=== PATIENT | female | born 1980 | race Caucasian/White ===

== ENCOUNTER 2018-08-13 15:00 | Emergency (ER) | payer OTHER, BC ==
[~2018-08-13] VITALS: Ht 177.8 cm; Wt 109.1 kg
[2018-08-13] MEDS ORDERED: ZYRTTAB8 PO (16:19)
[2018-08-13] MEDS ORDERED: SING10TA32 PO (16:19)
[2018-08-13 17:08] VITALS: BP 141/77
== END 2018-08-13 17:12 | disposition home or self-care (01) ==
LOC: M ED 15:00
DX: Z77.120 Contact with and (suspected) exposure to mold (toxic) (principal); J45.909 Unspecified asthma, uncomplicated; Z79.899 Other long term (current) drug therapy

== ENCOUNTER → 2018-10-16 | Outpatient (CLI) | payer BC ==
[~2018-10-16] MED LIST: SING10TA32 PO; ZYRTTAB8 PO
[2018-10-16 17:24] LABS: BASO % 0.4 % (0.0-1.0); EOS # 0.1 10^3/uL (0.0-0.50); EOS % 1.3 % (0.0-3.0); HEMATOCRIT 37.9 % (36.0-47.0); HEMOGLOBIN 12.9 g/dl (12.0-15.5); LYMPH # 3.6 10^3/uL (1.5-4.5); LYMPH % 40.6 % (24.0-44.0); MEAN CORPUSCULAR HEMOGLOBIN 30.9 pg (27.0-33.0); MEAN CORPUSCULAR VOLUME 90.9 fl (80.0-96.0); MONO # 0.7 10^3/uL (0.0-0.8); MONO % 7.4 % (0.0-5.0); NEUTROPHILS # 4.4 10^3/uL (1.8-7.7); NEUTROPHILS % 50.1 % (36.0-66.0); PLATELET COUNT, AUTOMATED 302 10^3/uL (150-450); RED BLOOD COUNT 4.17 10^6/uL (4.00-5.40); WHITE BLOOD COUNT 8.9 10^3/uL (4.0-10.0)
[2018-10-16 17:47] LABS: FREE T4 1.06 NG/DL (0.76-1.46); THYROID STIMULATING HORMONE 1.44 uIU/ML (0.358-3.740)
== END ==
LOC: M SMT 14:33
PROVIDERS: ATTEND Physician Assistant
DX: R06.00 Dyspnea, unspecified (principal)

== ENCOUNTER → 2020-06-16 | Outpatient (CLI) | payer OTHER ==
[2020-06-16 12:00] LABS: BASO # 0.1 10^3/uL (0.0-0.2); BASO % 0.7 % (0.0-1.0); EOS # 0.1 10^3/uL (0.0-0.5); EOS % 1.6 % (0.0-3.0); HEMATOCRIT 40.7 % (36.0-47.0); HEMOGLOBIN 13.4 g/dl (12.0-15.5); LYMPH # 2.2 10^3/uL (1.5-5.0); LYMPH % 29.3 % (24.0-44.0); MEAN CORPUSCULAR HEMOGLOBIN 30.5 pg (27.0-33.0); MEAN CORPUSCULAR HGB CONC 32.9 g/dl (32.0-36.5); MEAN CORPUSCULAR VOLUME 92.5 fl (80.0-96.0); MONO # 0.6 10^3/uL (0.0-0.8); MONO % 7.3 % (0.0-5.0); NEUTROPHILS # 4.6 10^3/uL (1.5-8.5); PLATELET COUNT, AUTOMATED 294 10^3/uL (150-450); WHITE BLOOD COUNT 7.6 10^3/uL (4.0-10.0)
[2020-06-16 12:53] LABS: ALBUMIN 3.6 GM/DL (3.2-5.2); ALT/SGPT 25 U/L (12-78); BILIRUBIN,TOTAL 0.5 MG/DL (0.2-1.0); BLOOD UREA NITROGEN 10 MG/DL (7-18); CALCIUM LEVEL 9.1 MG/DL (8.5-10.1); CARBON DIOXIDE LEVEL 25 MEQ/L (21-32); CHLORIDE LEVEL 106 MEQ/L (98-107); CREATININE FOR GFR 0.81 MG/DL (0.55-1.30); FREE T4 1.03 NG/DL (0.76-1.46); GLOMERULAR FILTRATION RATE > 60.0 (>60); GLUCOSE, FASTING 86 MG/DL (70-100); POTASSIUM SERUM 4.2 MEQ/L (3.5-5.1); SODIUM LEVEL 139 MEQ/L (136-145); TOTAL 25(OH) VITAMIN D 26.3 NG/ML (30.0-100.0); TOTAL PROTEIN 7.4 GM/DL (6.4-8.2)
== END ==
LOC: M WUC 08:48
PROVIDERS: ATTEND Physician Assistant
DX: E66.01 Morbid (severe) obesity due to excess calories (principal); F41.1 Generalized anxiety disorder

== ENCOUNTER → 2021-02-14 | Outpatient (CLI) | payer OTHER ==
--- NOTE | 2021-02-14 12:51 | REP ---
INDICATION: DYSURIA. COMPARISON: None. FINDINGS: Supine and upright views of the abdomen show the intestinal gas pattern to be nonspecific. Gas and stool is seen throughout the colon within the rectosigmoid region. The organ silhouettes insofar as delineated appear unremarkable. There is an oval-shaped 1.2 cm sized calcific density in the left abdomen between the transverse processes of L2 and L3. A T-shaped radiodensity is seen within the pelvis consistent with an IUD. The accompanying single frontal view of the chest shows no free subdiaphragmatic air, cardiomegaly, infiltrates or effusions. IMPRESSION: Nonspecific intestinal gas pattern. Left-sided abdominal calcification, as described above, possibly representing and nephrolith or ureterolith. Consider follow-up stone protocol CT if clinically relevant. <Electronically signed by Dmitry Dick > 02/14/21 [id number]
== END ==
LOC: M WUC 11:23
PROVIDERS: ATTEND Physician Assistant
DX: R30.0 Dysuria (principal); R10.0 Acute abdomen

== ENCOUNTER → 2021-06-28 | Outpatient (CLI) | payer OTHER | LOC: M LABSMTC 09:57 | PROVIDERS: ATTEND Pediatrics | DX: Z11.52 Encounter for screening for COVID-19 (principal) ==

== ENCOUNTER → 2021-11-16 | Outpatient (CLI) | payer OTHER | LOC: M RAD 12:32 | PROVIDERS: ATTEND Physician Assistant | DX: J32.8 Other chronic sinusitis (principal) ==

== ENCOUNTER → 2021-12-13 | Outpatient (CLI) | payer OTHER | LOC: M WHC 07:45 | PROVIDERS: ATTEND Physician Assistant | DX: Z12.31 Encounter for screening mammogram for malignant neoplasm of breast (principal) ==

== ENCOUNTER → 2022-01-18 | Outpatient (REF) | payer OTHER | LOC: M LAB REF 18:54 | PROVIDERS: ATTEND Internal Medicine | DX: R30.0 Dysuria (principal) ==

== ENCOUNTER → 2022-01-28 | Outpatient (CLI) | payer OTHER | LOC: M WUC 08:27 | PROVIDERS: ATTEND Allergy & Immunology Allergy | DX: J31.0 Chronic rhinitis (principal) ==

== ENCOUNTER → 2022-01-28 | Outpatient (CLI) | payer OTHER ==
[2022-01-28 11:05] LABS: BASO # 0.1 10^3/uL (0.0-0.2); BASO % 0.7 % (0.0-1.0); EOS # 0.2 10^3/uL (0.0-0.5); EOS % 1.6 % (0.0-3.0); HEMATOCRIT 39.4 % (36.0-47.0); HEMOGLOBIN 12.6 g/dl (12.0-15.5); LYMPH # 3.2 10^3/uL (1.5-5.0); LYMPH % 30.3 % (24.0-44.0); MEAN CORPUSCULAR HEMOGLOBIN 29.8 pg (27.0-33.0); MEAN CORPUSCULAR VOLUME 93.1 fl (80.0-96.0); MONO # 0.5 10^3/uL (0.0-0.8); MONO % 4.8 % (2.0-8.0); NEUTROPHILS # 6.6 10^3/uL (1.5-8.5); NEUTROPHILS % 62.1 % (36.0-66.0); PLATELET COUNT, AUTOMATED 333 10^3/uL (150-450); RED BLOOD COUNT 4.23 10^6/uL (4.00-5.40); WHITE BLOOD COUNT 10.6 10^3/uL (4.0-10.0)
[2022-01-28 11:42] LABS: ALBUMIN 3.3 GM/DL (3.2-5.2); BILIRUBIN,TOTAL 0.2 MG/DL (0.2-1.0); CALCIUM LEVEL 8.5 MG/DL (8.5-10.1); CHOLESTEROL RISK RATIO 4.175 (<5); CREATININE FOR GFR 1.13 MG/DL (0.55-1.30); FREE T4 1.02 NG/DL (0.76-1.46); GLOMERULAR FILTRATION RATE 56.8 (>58); POTASSIUM SERUM 4.2 MEQ/L (3.5-5.1); THYROID STIMULATING HORMONE 1.97 uIU/ML (0.358-3.740); TOTAL PROTEIN 7.3 GM/DL (6.4-8.2)
[2022-01-28 11:44] LABS: TOTAL 25(OH) VITAMIN D 27.6 NG/ML (30.0-100.0)
[2022-01-28 11:54] LABS: HEMOGLOBIN A1c 5.6 %
== END ==
LOC: M WUC 08:20
PROVIDERS: ATTEND Physician Assistant
DX: Z13.220 Encounter for screening for lipoid disorders (principal); Z13.29 Encounter for screening for other suspected endocrine disorder

== ENCOUNTER → 2022-08-22 | Outpatient (REF) | payer OTHER | LOC: M LAB REF 16:25 | PROVIDERS: ATTEND Physician Assistant | DX: R50.9 Fever, unspecified (principal) ==

== ENCOUNTER 2022-08-27 15:34 | Emergency (ER) | payer OTHER ==
[~2022-08-27] VITALS: Ht 177.8 cm; Wt 124.7 kg
[2022-08-27] MEDS ORDERED: MOLN200C (18:40)
[2022-08-27 21:01] VITALS: BP 133/89
== END 2022-08-27 21:04 | disposition home or self-care (01) ==
LOC: M ED 18:51
DX: U07.1 COVID-19 (principal); E66.9 Obesity, unspecified; Z79.899 Other long term (current) drug therapy

== ENCOUNTER → 2022-09-05 | Outpatient (REF) | payer OTHER ==
[~2022-09-05] MED LIST changes: +MOLN200C
== END ==
LOC: M LAB REF 17:04
PROVIDERS: ATTEND Physician Assistant
DX: N39.0 Urinary tract infection, site not specified (principal)

== ENCOUNTER → 2023-06-27 | Outpatient (CLI) | payer OTHER ==
[~2023-06-27] MED LIST changes: +MONT-5 PO; -SING10TA32 PO
== END ==
LOC: M WHC 07:41
PROVIDERS: ATTEND Physician Assistant
DX: Z12.31 Encounter for screening mammogram for malignant neoplasm of breast (principal)

== ENCOUNTER → 2024-06-18 | Outpatient (CLI) | payer OTHER ==
[2024-06-18 18:09] LABS: BASO # 0.1 10^3/uL (0.0-0.2); BASO % 0.5 % (0.0-1.0); EOS # 0.2 10^3/uL (0.0-0.5); EOS % 1.2 % (0.0-3.0); HEMOGLOBIN 13.1 g/dl (12.0-15.5); LYMPH # 4.8 10^3/uL (1.5-5.0); LYMPH % 37.9 % (24.0-44.0); MEAN CORPUSCULAR HEMOGLOBIN 30.7 pg (27.0-33.0); MEAN CORPUSCULAR HGB CONC 32.8 g/dl (32.0-36.5); MEAN CORPUSCULAR VOLUME 93.7 fl (80.0-96.0); MONO # 0.7 10^3/uL (0.0-0.8); MONO % 5.3 % (2.0-8.0); NEUTROPHILS % 54.8 % (36.0-66.0); PLATELET COUNT, AUTOMATED 335 10^3/uL (150-450); RED BLOOD COUNT 4.27 10^6/uL (4.00-5.40); WHITE BLOOD COUNT 12.7 10^3/uL (4.0-10.0)
[2024-06-18 18:21] LABS: ALBUMIN 3.7 G/DL (3.2-5.2); ALKALINE PHOSPHATASE 58 U/L (35-104); ALT/SGPT 22 U/L (7.0-40); AST/SGOT < 8 U/L (<34); BILIRUBIN,TOTAL 0.5 MG/DL (0.3-1.2); BLOOD UREA NITROGEN 15 MG/DL (9-23); CALCIUM LEVEL 9.8 MG/DL (8.5-10.1); CARBON DIOXIDE LEVEL 28 MMOL/L (20-31); CHLORIDE LEVEL 105 MMOL/L (98-107); CHOLESTEROL LEVEL 188 MG/DL (<200); CHOLESTEROL RISK RATIO 4.43 (<5); CREATININE FOR GFR 1.03 MG/DL (0.55-1.30); GLOMERULAR FILTRATION RATE > 60.0 (>58); GLUCOSE, FASTING 85 MG/DL (60-100); HDL CHOLESTEROL 42.4 MG/DL (>40); LDL CHOLESTEROL 120.8 MG/DL (<100); NON-HDL-C 145.6 MG/DL; SODIUM LEVEL 139 MMOL/L (136-145); TOTAL PROTEIN 7.5 G/DL (5.7-8.2); TRIGLYCERIDES LEVEL 124 MG/DL (<150)
[2024-06-18 18:23] LABS: FREE T4 1.33 NG/DL (0.89-1.76); THYROID STIMULATING HORMONE 1.278 uIU/ML (0.55-4.78)
[2024-06-18 18:24] LABS: TOTAL 25(OH) VITAMIN D 33.6 NG/ML (20.0-100.0)
[2024-06-18 18:40] LABS: HEMOGLOBIN A1c 5.2 % (4.0-6.0)
== END ==
LOC: M PLALAB 16:18
PROVIDERS: ATTEND Physician Assistant
DX: Z13.220 Encounter for screening for lipoid disorders (principal)

== ENCOUNTER → 2024-06-18 | Outpatient (CLI) | payer OTHER ==
[2024-06-18 18:08] LABS: HEMOGLOBIN 13.1 g/dl (12.0-15.5); MEAN CORPUSCULAR HEMOGLOBIN 30.3 pg (27.0-33.0); MEAN CORPUSCULAR HGB CONC 32.8 g/dl (32.0-36.5); MEAN CORPUSCULAR VOLUME 92.6 fl (80.0-96.0); PLATELET COUNT, AUTOMATED 331 10^3/uL (150-450); RED BLOOD COUNT 4.32 10^6/uL (4.00-5.40); WHITE BLOOD COUNT 12.3 10^3/uL (4.0-10.0)
[2024-06-18 18:26] LABS: ALBUMIN 3.6 G/DL (3.2-5.2); ALKALINE PHOSPHATASE 54 U/L (35-104); ALT/SGPT 21 U/L (7.0-40); AST/SGOT 9 U/L (<34); BILIRUBIN,TOTAL 0.5 MG/DL (0.3-1.2); BLOOD UREA NITROGEN 15 MG/DL (9-23); CALCIUM LEVEL 9.6 MG/DL (8.5-10.1); CARBON DIOXIDE LEVEL 27 MMOL/L (20-31); CHLORIDE LEVEL 106 MMOL/L (98-107); CREATININE FOR GFR 1.04 MG/DL (0.55-1.30); GLOMERULAR FILTRATION RATE > 60.0 (>58); GLUCOSE, FASTING 83 MG/DL (60-100); POTASSIUM SERUM 4.1 MMOL/L (3.5-5.1); SODIUM LEVEL 141 MMOL/L (136-145); TOTAL PROTEIN 7.3 G/DL (5.7-8.2)
[2024-06-18 18:28] LABS: VITAMIN B12 LEVEL 572 PG/ML (211-911)
== END ==
LOC: M PLALAB 16:19
PROVIDERS: ATTEND Nurse Practitioner Family
DX: L73.2 Hidradenitis suppurativa (principal)

== ENCOUNTER → 2024-06-25 | Outpatient (CLI) | payer OTHER ==
[2024-06-25 11:26] LABS: BASO # 0.1 10^3/uL (0.0-0.2); BASO % 0.6 % (0.0-1.0); EOS # 0.2 10^3/uL (0.0-0.5); EOS % 1.6 % (0.0-3.0); HEMATOCRIT 41.5 % (36.0-47.0); HEMOGLOBIN 13.6 g/dl (12.0-15.5); LYMPH # 3.4 10^3/uL (1.5-5.0); LYMPH % 31.1 % (24.0-44.0); MEAN CORPUSCULAR HEMOGLOBIN 30.4 pg (27.0-33.0); MEAN CORPUSCULAR HGB CONC 32.8 g/dl (32.0-36.5); MEAN CORPUSCULAR VOLUME 92.6 fl (80.0-96.0); MONO # 0.6 10^3/uL (0.0-0.8); MONO % 5.3 % (2.0-8.0); NEUTROPHILS # 6.7 10^3/uL (1.5-8.5); PLATELET COUNT, AUTOMATED 334 10^3/uL (150-450); RED BLOOD COUNT 4.48 10^6/uL (4.00-5.40); WHITE BLOOD COUNT 10.9 10^3/uL (4.0-10.0)
[2024-06-25 11:31] LABS: LDH LACTATE DEHYDROGENASE 142 U/L (120-246)
[2024-06-25 11:32] LABS: ERYTHROCYTE SEDIMENTATION RATE 34 mm/hr (0-20)
[2024-06-25 11:47] LABS: HEPATITIS B SURFACE ANTIGEN NEGATIVE (NEGATIVE)
[2024-06-25 12:00] LABS: HIV 1&2 SCREEN NEGATIVE (NEGATIVE)
[2024-06-25 12:06] LABS: HEPATITIS C VIRUS ABY INDEX < 0.02 INDEX (<0.8)
[2024-06-25 12:07] LABS: HEPATITIS B CORE ANTIBODY IGM NEGATIVE (NEGATIVE)
== END ==
LOC: M PLALAB 07:57
PROVIDERS: ATTEND Physician Assistant
DX: D72.829 Elevated white blood cell count, unspecified (principal)

== ENCOUNTER → 2024-07-14 | Outpatient (CLI) | payer OTHER | LOC: M WHC 07:31 | PROVIDERS: ATTEND Physician Assistant | DX: Z12.31 Encounter for screening mammogram for malignant neoplasm of breast (principal) ==

== ENCOUNTER → 2024-08-19 | Outpatient (CLI) | payer OTHER ==
[~2024-08-19] MED LIST changes: +BUSP10TA PO; +ERGO500029 PO; +OMEP-173 PO; +OMEP40CA5 PO; +RIFA300C62 PO; +SPIR50TA4 PO
[2024-08-19 10:34] LABS: BASO # 0.1 10^3/uL (0.0-0.2); BASO % 0.6 % (0.0-1.0); EOS # 0.1 10^3/uL (0.0-0.5); EOS % 1.5 % (0.0-3.0); HEMATOCRIT 40.5 % (36.0-47.0); HEMOGLOBIN 13.4 g/dl (12.0-15.5); LYMPH # 2.9 10^3/uL (1.5-5.0); LYMPH % 33.6 % (24.0-44.0); MEAN CORPUSCULAR HEMOGLOBIN 30.6 pg (27.0-33.0); MEAN CORPUSCULAR HGB CONC 33.1 g/dl (32.0-36.5); MEAN CORPUSCULAR VOLUME 92.5 fl (80.0-96.0); MONO # 0.5 10^3/uL (0.0-0.8); MONO % 5.3 % (2.0-8.0); NEUTROPHILS % 58.8 % (36.0-66.0); PLATELET COUNT, AUTOMATED 263 10^3/uL (150-450); RED BLOOD COUNT 4.38 10^6/uL (4.00-5.40); WHITE BLOOD COUNT 8.6 10^3/uL (4.0-10.0)
[2024-08-19 10:57] LABS: ALBUMIN 3.6 G/DL (3.2-5.2); ALKALINE PHOSPHATASE 47 U/L (35-104); ALT/SGPT 26 U/L (7.0-40); AST/SGOT 11 U/L (<34); BILIRUBIN,TOTAL 0.3 MG/DL (0.3-1.2); BLOOD UREA NITROGEN 16 MG/DL (9-23); CALCIUM LEVEL 9.4 MG/DL (8.5-10.1); CARBON DIOXIDE LEVEL 24 MMOL/L (20-31); CHLORIDE LEVEL 107 MMOL/L (98-107); CREATININE FOR GFR 0.93 MG/DL (0.55-1.30); GLOMERULAR FILTRATION RATE > 60.0 (>58); GLUCOSE, FASTING 100 MG/DL (60-100); POTASSIUM SERUM 4.5 MMOL/L (3.5-5.1); SODIUM LEVEL 143 MMOL/L (136-145); TOTAL PROTEIN 7.4 G/DL (5.7-8.2)
== END ==
LOC: M PLALAB 07:30
PROVIDERS: ATTEND Physician Assistant
DX: Z01.818 Encounter for other preprocedural examination (principal)

== ENCOUNTER 2024-08-31 08:36 | Observation (INO) | payer OTHER ==
[2024-08-31] VITALS (8 sets, daily range): BP systolic 94–123; BP diastolic 56–75; TEMP 97.5–98.8; O2SAT 92–94
[~2024-08-31] VITALS: Ht 177.8 cm; Wt 122.1 kg
[~2024-08-31 08:36] MED LIST changes: +CLIN-250 PO
[2024-08-31] MEDS ORDERED: VITA500045 PO (10:02)
[2024-08-31] MEDS ORDERED: BUSP10TA PO (10:02)
[2024-08-31] MEDS ORDERED: HOME MED LIST COMPLETE! XX SCH (10:05)
[2024-08-31] MEDS ORDERED: propofoL 200 MG/20 ML VIAL As Ordered ONE (10:10)
[2024-08-31] MEDS ORDERED: ONDANSETRON 4MG 2ML VIAL As Ordered ONE (10:10)
[2024-08-31] MEDS ORDERED: fentaNYL 100 MCG/2 ML INJECTION As Ordered ONE (10:11)
[2024-08-31] MEDS ORDERED: MIDAZOLAM INJ 2MG/2ML VIAL As Ordered ONE (10:11)
[2024-08-31] MEDS ORDERED: dexmedeTOMIDine (4MCG/ML)200MCG/50ML BTL (PRECEDEX) As Ordered ONE (10:11)
[2024-08-31] MEDS ORDERED: LIDOCAINE 2% 100MG/5ML SDV (FOR ANES.) As Ordered ONE (10:19)
[2024-08-31] MEDS: SCOPOLAMINE 1MG TRANSDERMAL PATCH TOP ONE (10:33)
[2024-08-31] MEDS: NS (Normal Saline) 0.9% 1,000 ML IV SCH ×2 (10:33→13:35)
[2024-08-31] MEDS ORDERED: SEVOFLURANE INHAL SOLN 250 ML BTL As Ordered ONE (10:51)
[2024-08-31] MEDS: ceFAZolin SOD 1 GM in DEXTROSE 5% (D5W) ADV/MINI-BAG 50 ML IV ONE (12:00)
[2024-08-31] MEDS: ceFAZolin SOD 2 GM in IV 1 EA IV ONE (12:00)
[2024-08-31] MEDS ORDERED: ROCURONIUM BROMIDE 50MG/5ML VIAL As Ordered ONE (12:25)
[2024-08-31] MEDS: GENTAMICIN SULF 80MG/2ML VIAL As Ordered ONE (12:26)
[2024-08-31] MEDS ORDERED: ACETAMINOPHEN 1000MG/100ML IV BAG As Ordered ONE (12:38)
[2024-08-31] MEDS ORDERED: HYDROmorphone HCL 2MG/ML 1ML VIAL As Ordered ONE (12:43)
[2024-08-31] MEDS: BUPivacaine LIPOSOME/PF 266MG 20ML VIAL (13.3MG/ML)(EXPAREL) As Ordered ONE (12:57)
[2024-08-31] MEDS ORDERED: ePHEDrine SULFATE 25 MG/5 ML(5MG/ML) SYRINGE As Ordered ONE (13:06)
[2024-08-31] MEDS ORDERED: fentaNYL 100 MCG/2 ML INJECTION IV PRN (13:35)
[2024-08-31] MEDS ORDERED: HYDROMORPHONE HCL 0.5 MG/ 0.5 ML SYRINGE IV PRN (13:35)
[2024-08-31] MEDS ORDERED: ONDANSETRON 4MG 2ML VIAL IV PRN ×2 (13:35→13:45)
[2024-08-31] MEDS: oxyCODONE 5MG TAB PO PRN (14:23)
[2024-08-31] MEDS: LR 1,000 ML IV SCH (14:55)
[2024-08-31] MEDS: traMADol 50 MG TAB PO PRN (16:10)
[2024-08-31] MEDS: ceFAZolin SOD 2 GM in IV 1 EA IV SCH (20:06)
[2024-08-31] MEDS: PERCOCET 5MG/325MG TAB PO PRN (22:07)
[2024-09-01 04:19] VITALS: BP 101/65; TEMP 98.1; O2SAT 95
[2024-09-01 08:00] VITALS: BP 123/74; TEMP 98.4; O2SAT 97
[2024-09-01] MEDS: CETIRIZINE (ZyrTEC) 10 MG TAB PO SCH (09:00)
[2024-09-01 12:00] VITALS: BP 122/73; TEMP 98.4; O2SAT 92
[2024-09-01 20:00] VITALS: BP 125/74; TEMP 98.4; O2SAT 92
[2024-09-02 04:00] VITALS: BP 128/76; TEMP 97; O2SAT 95
[2024-09-02 12:29] VITALS: BP 130/77; TEMP 98.8; O2SAT 96
[2024-09-02 20:35] VITALS: BP 127/77; TEMP 98.4; O2SAT 95
[2024-09-03 04:43] VITALS: BP 126/77; TEMP 98.4; O2SAT 94
[2024-09-03 07:09] LABS: HEMATOCRIT 37.4 % (36.0-47.0); HEMOGLOBIN 12.4 g/dl (12.0-15.5); MEAN CORPUSCULAR HEMOGLOBIN 30.6 pg (27.0-33.0); MEAN CORPUSCULAR HGB CONC 33.2 g/dl (32.0-36.5); MEAN CORPUSCULAR VOLUME 92.3 fl (80.0-96.0); PLATELET COUNT, AUTOMATED 262 10^3/uL (150-450); RED BLOOD COUNT 4.05 10^6/uL (4.00-5.40); WHITE BLOOD COUNT 9.3 10^3/uL (4.0-10.0)
[2024-09-03] MEDS: ACETAMINOPHEN 325 MG TAB PO PRN (08:16)
[2024-09-03] MEDS ORDERED: TRAM50TA2 PO (09:50)
== END 2024-09-03 11:20 | disposition home or self-care (01) ==
LOC: M SDC 08:36 → M RR INP 08:37 → M MS5PR 14:40
PROVIDERS: ADMIT Plastic Surgery Surgery of the Hand; ATTEND Plastic Surgery Surgery of the Hand
DX: L73.2 Hidradenitis suppurativa (principal); Z79.899 Other long term (current) drug therapy; Z79.2 Long term (current) use of antibiotics
CPT/HCPCS: 11450; 15271; 15272; 36415; 81025; 85027; 88304; 96374; 96376; A2006; J0131; J0665; J0666; J0690; J1100; J1171; J1580; J2250; J2405; J3010

== ENCOUNTER 2024-09-28 06:10 | Inpatient (IN) | payer OTHER ==
[~2024-09-28] VITALS: Ht 177.8 cm; Wt 127.0 kg
[~2024-09-28 06:10] MED LIST changes: +CETI10CA13 PO; +TRAM50TA2 PO; +VITA500045 PO; +ceFAZolin SOD 2 GM in IV 1 EA IV ONE
[2024-09-28 06:34] LABS: HEMATOCRIT 40.2 % (36.0-47.0); HEMOGLOBIN 13.5 g/dl (12.0-15.5); MEAN CORPUSCULAR HGB CONC 33.6 g/dl (32.0-36.5); MEAN CORPUSCULAR VOLUME 92.2 fl (80.0-96.0); PLATELET COUNT, AUTOMATED 271 10^3/uL (150-450); RED BLOOD COUNT 4.36 10^6/uL (4.00-5.40); WHITE BLOOD COUNT 9.6 10^3/uL (4.0-10.0)
[2024-09-28] MEDS ORDERED: propofoL 200 MG/20 ML VIAL As Ordered ONE (06:50)
[2024-09-28] MEDS ORDERED: LIDOCAINE 2% 100MG/5ML SDV (FOR ANES.) As Ordered ONE (06:50)
[2024-09-28] MEDS ORDERED: ONDANSETRON 4MG 2ML VIAL As Ordered ONE (06:50)
[2024-09-28] MEDS ORDERED: MIDAZOLAM INJ 2MG/2ML VIAL As Ordered ONE (06:53)
[2024-09-28] MEDS ORDERED: fentaNYL 100 MCG/2 ML INJECTION As Ordered ONE (06:53)
[2024-09-28] MEDS ORDERED: NS (Normal Saline) 0.9% 1,000 ML IV SCH (07:00)
[2024-09-28 07:04] LABS: BLOOD UREA NITROGEN 17 MG/DL (9-23); CALCIUM LEVEL 9.1 MG/DL (8.5-10.1); CARBON DIOXIDE LEVEL 28 MMOL/L (20-31); CHLORIDE LEVEL 108 MMOL/L (98-107); CREATININE FOR GFR 0.92 MG/DL (0.55-1.30); GLOMERULAR FILTRATION RATE > 60.0 (>58); GLUCOSE, FASTING 109 MG/DL (60-100); POTASSIUM SERUM 4.2 MMOL/L (3.5-5.1); SODIUM LEVEL 143 MMOL/L (136-145)
[2024-09-28] MEDS ORDERED: dexmedeTOMIDine (4MCG/ML)200MCG/50ML BTL (PRECEDEX) As Ordered ONE (07:23)
[2024-09-28] MEDS: SCOPOLAMINE 1MG TRANSDERMAL PATCH TOP ONE (07:25)
[2024-09-28] MEDS ORDERED: HOME MED LIST COMPLETE! XX SCH (07:35)
[2024-09-28] MEDS: ceFAZolin SOD 3 GM in DEXTROSE 5% (D5W) MINI-BAG PLU 1... IV ONE (07:50)
[2024-09-28] MEDS ORDERED: ACETAMINOPHEN 1000MG/100ML IV BAG As Ordered ONE (07:59)
[2024-09-28] MEDS: GENTAMICIN SULF 80MG/2ML VIAL As Ordered ONE (08:00)
[2024-09-28] MEDS: EPINEPHrine INJ 1 MG/ML 1ML AMP As Ordered ONE (08:15)
[2024-09-28] MEDS: LIDOCAINE W/EPINEPHRINE 1% 20ML VIAL As Ordered ONE (08:58)
[2024-09-28] MEDS ORDERED: ONDANSETRON 4MG 2ML VIAL IV PRN (09:00)
[2024-09-28] MEDS ORDERED: oxyCODONE 5MG TAB PO PRN (09:00)
[2024-09-28] MEDS ORDERED: fentaNYL 100 MCG/2 ML INJECTION IV PRN (09:00)
[2024-09-28] MEDS: NS (Normal Saline) 0.9% 1,000 ML IV SCH (09:00)
[2024-09-28] MEDS ORDERED: HYDROMORPHONE HCL 0.5 MG/ 0.5 ML SYRINGE IV PRN (09:00)
[2024-09-28] MEDS ORDERED: busPIRone 10 MG TAB PO PRN (10:50)
[2024-09-28] MEDS ORDERED: CETIRIZINE (ZyrTEC) 10 MG TAB PO PRN (11:35)
[2024-09-28 13:45] VITALS: BP 130/87; TEMP 98.2; O2SAT 96
[2024-09-28] MEDS: DOXYCYCLINE HYCLATE 100MG TABLET PO SCH (14:09)
[2024-09-28 17:45] VITALS: BP 96/60; TEMP 97.7; O2SAT 94
[2024-09-28 19:41] VITALS: BP 110/64; TEMP 97.7; O2SAT 94
[2024-09-28] MEDS: SPIRONOLACTONE 50 MG TAB PO SCH (20:29)
[2024-09-28] MEDS ORDERED: CLINDAMYCIN 150MG CAPSULE PO SCH (21:00)
[2024-09-28] MEDS ORDERED: rifAMPin 150MG CAPSULE PO SCH (21:00)
[2024-09-28 23:46] VITALS: BP 98/68; TEMP 98.1; O2SAT 94
[2024-09-29 04:00] VITALS: BP 103/69; TEMP 97.9; O2SAT 96
[2024-09-29] MEDS: ACETAMINOPHEN 325 MG TAB PO PRN (04:13)
[2024-09-29 06:05] LABS: HEMATOCRIT 36.9 % (36.0-47.0); HEMOGLOBIN 12.3 g/dl (12.0-15.5); MEAN CORPUSCULAR HEMOGLOBIN 30.3 pg (27.0-33.0); MEAN CORPUSCULAR HGB CONC 33.3 g/dl (32.0-36.5); MEAN CORPUSCULAR VOLUME 90.9 fl (80.0-96.0); PLATELET COUNT, AUTOMATED 240 10^3/uL (150-450); RED BLOOD COUNT 4.06 10^6/uL (4.00-5.40); WHITE BLOOD COUNT 9.4 10^3/uL (4.0-10.0)
[2024-09-29 06:41] LABS: BLOOD UREA NITROGEN 16 MG/DL (9-23); CALCIUM LEVEL 8.8 MG/DL (8.5-10.1); CARBON DIOXIDE LEVEL 25 MMOL/L (20-31); CHLORIDE LEVEL 108 MMOL/L (98-107); CREATININE FOR GFR 0.82 MG/DL (0.55-1.30); GLOMERULAR FILTRATION RATE > 60.0 (>58); GLUCOSE, FASTING 96 MG/DL (60-100); MAGNESIUM LEVEL 1.8 MG/DL (1.8-2.4); POTASSIUM SERUM 4.2 MMOL/L (3.5-5.1); SODIUM LEVEL 141 MMOL/L (136-145)
[2024-09-29 07:30] VITALS: BP 107/71; TEMP 98.1; O2SAT 95
[2024-09-29 08:00] VITALS: BP 107/71; TEMP 98.1; O2SAT 95
[2024-09-29] MEDS: CETIRIZINE (ZyrTEC) 10 MG TAB PO SCH (08:33)
[2024-09-29] MEDS: OMEPRAZOLE 20MG CAP PO SCH (08:33)
[2024-09-29 11:42] VITALS: BP 108/71; TEMP 97.2; O2SAT 95
[2024-09-29] MEDS: ENOXAPARIN 40MG/0.4ML SYRINGE (J1650 PER 10MG) SC SCH (12:39)
[2024-09-29 16:00] VITALS: BP 106/65; TEMP 98.1; O2SAT 93
[2024-09-29 20:33] VITALS: BP 115/64; TEMP 97.2; O2SAT 94
[2024-09-30 00:07] VITALS: BP 112/68; TEMP 97.5; O2SAT 95
[2024-09-30 04:53] VITALS: BP 111/68; TEMP 97.7; O2SAT 97
[2024-09-30 06:39] LABS: HEMATOCRIT 36.6 % (36.0-47.0); HEMOGLOBIN 12.4 g/dl (12.0-15.5); MEAN CORPUSCULAR HEMOGLOBIN 31.2 pg (27.0-33.0); MEAN CORPUSCULAR HGB CONC 33.9 g/dl (32.0-36.5); PLATELET COUNT, AUTOMATED 233 10^3/uL (150-450); RED BLOOD COUNT 3.98 10^6/uL (4.00-5.40); WHITE BLOOD COUNT 8.3 10^3/uL (4.0-10.0)
[2024-09-30 07:37] LABS: BLOOD UREA NITROGEN 20 MG/DL (9-23); CALCIUM LEVEL 8.5 MG/DL (8.5-10.1); CARBON DIOXIDE LEVEL 24 MMOL/L (20-31); CHLORIDE LEVEL 109 MMOL/L (98-107); CREATININE FOR GFR 0.74 MG/DL (0.55-1.30); GLOMERULAR FILTRATION RATE > 60.0 (>58); GLUCOSE, FASTING 90 MG/DL (60-100); MAGNESIUM LEVEL 1.8 MG/DL (1.8-2.4); POTASSIUM SERUM 4.3 MMOL/L (3.5-5.1); SODIUM LEVEL 142 MMOL/L (136-145)
[2024-09-30 08:33] VITALS: BP 122/76; TEMP 98.1; O2SAT 95
[2024-09-30] MEDS: traMADol 50 MG TAB PO PRN (09:39)
[2024-09-30 12:23] VITALS: BP 120/75; TEMP 98.1; O2SAT 95
[2024-09-30 16:30] VITALS: BP 121/75; TEMP 98.1; O2SAT 96
[2024-09-30 21:37] VITALS: BP 120/79; TEMP 97.3; O2SAT 96
[2024-10-01 00:46] VITALS: BP 120/76; TEMP 97; O2SAT 97
[2024-10-01 05:50] VITALS: BP 119/76; TEMP 97.7; O2SAT 96
[2024-10-01 07:08] LABS: HEMATOCRIT 38.5 % (36.0-47.0); HEMOGLOBIN 12.8 g/dl (12.0-15.5); MEAN CORPUSCULAR HEMOGLOBIN 30.6 pg (27.0-33.0); MEAN CORPUSCULAR HGB CONC 33.2 g/dl (32.0-36.5); MEAN CORPUSCULAR VOLUME 92.1 fl (80.0-96.0); PLATELET COUNT, AUTOMATED 238 10^3/uL (150-450); RED BLOOD COUNT 4.18 10^6/uL (4.00-5.40); WHITE BLOOD COUNT 9.6 10^3/uL (4.0-10.0)
[2024-10-01 07:40] LABS: BLOOD UREA NITROGEN 17 MG/DL (9-23); CALCIUM LEVEL 9.1 MG/DL (8.5-10.1); CARBON DIOXIDE LEVEL 25 MMOL/L (20-31); CHLORIDE LEVEL 111 MMOL/L (98-107); CREATININE FOR GFR 0.76 MG/DL (0.55-1.30); GLOMERULAR FILTRATION RATE > 60.0 (>58); GLUCOSE, FASTING 89 MG/DL (60-100); MAGNESIUM LEVEL 1.8 MG/DL (1.8-2.4); POTASSIUM SERUM 4.2 MMOL/L (3.5-5.1); SODIUM LEVEL 143 MMOL/L (136-145)
[2024-10-01 07:53] VITALS: BP 117/78; TEMP 98.1; O2SAT 95
[2024-10-01 09:36] VITALS: BP 117/78; TEMP 98.1; O2SAT 95
[2024-10-01 12:00] VITALS: BP 116/78; TEMP 97.9; O2SAT 96
[2024-10-01 19:53] VITALS: BP 116/72; TEMP 97.5; O2SAT 95
[2024-10-02 04:35] VITALS: BP 113/71; TEMP 97.9; O2SAT 99
[2024-10-03 04:23] VITALS: BP 108/63; TEMP 97.7; O2SAT 97
[2024-10-04 04:00] VITALS: BP 103/62; TEMP 97.7; O2SAT 98
[2024-10-05 04:00] VITALS: BP 98/64; TEMP 97.3; O2SAT 98
== END 2024-10-05 13:40 | disposition home or self-care (01) | DRG 361 ==
LOC: M SDC 06:10 → M RR INP 06:11 → M MS5PR 13:45 → OBSVTOIN 09-30 17:08
PROVIDERS: ADMIT Student in an Organized Health Care Education/Training Program; ATTEND Student in an Organized Health Care Education/Training Program
PROC: 0HRBX74 Replacement of Right Upper Arm Skin with Autologous Tissue Substitute, Partial Thickness, External Approach (ICD-10-PCS; principal; 2024-09-28 07:30)
PROC: 0XB40ZZ Excision of Right Axilla, Open Approach (ICD-10-PCS; 2024-09-28 07:30)
DX: L73.2 Hidradenitis suppurativa (principal); F41.9 Anxiety disorder, unspecified; K21.9 Gastro-esophageal reflux disease without esophagitis; Z79.899 Other long term (current) drug therapy

== ENCOUNTER → 2024-10-14 | Outpatient (REF) | payer OTHER ==
[~2024-10-14] MED LIST changes: -ceFAZolin SOD 2 GM in IV 1 EA IV ONE
[2024-10-14 15:28] LABS: HEPATITIS B SURFACE ANTIGEN NEGATIVE (NEGATIVE)
[2024-10-14 15:41] LABS: HIV 1&2 SCREEN NEGATIVE (NEGATIVE)
[2024-10-14 15:50] LABS: HEPATITIS B CORE ANTIBODY IGM NEGATIVE (NEGATIVE)
== END ==
LOC: M LABDRWAD 13:01
PROVIDERS: ATTEND Nurse Practitioner Family
DX: L73.2 Hidradenitis suppurativa (principal)

== ENCOUNTER → 2025-04-13 | Outpatient (CLI) | payer OTHER ==
[~2025-04-13] MED LIST changes: +ERGO125013 PO; -VITA500045 PO
== END ==
LOC: M WUC 15:43
PROVIDERS: ATTEND Physician Assistant
DX: M54.6 Pain in thoracic spine (principal)

== ENCOUNTER → 2025-06-16 | Outpatient (REF) | payer OTHER | LOC: M SFHCDERM 12:54 | PROVIDERS: ATTEND Nurse Practitioner Family | DX: L73.2 Hidradenitis suppurativa (principal) ==

== ENCOUNTER → 2025-07-13 | Outpatient (REF) | payer OTHER | LOC: M SFHCADAM 10:53 | PROVIDERS: ATTEND Nurse Practitioner Family | DX: L73.2 Hidradenitis suppurativa (principal) ==